=== PATIENT | male | born 1935 | race Caucasian/White ===

== ENCOUNTER 2016-06-20 07:30 | Emergency (ER) | payer MEDICARE ==
[2016-06-20 08:03] LABS: ABSOLUTE NEUTROPHIL COUNT 3.6 K/mm3 (1.8-7.7); BASO # 0.1 K/mm3 (0.0-0.2); BASO % 0.9 % (0.2-1.0); EOS # 0.3 (0.0-0.5); EOS % 4.1 % (0.9-2.9); HEMOGLOBIN 14.7 gm/l (14.0-18.0); IMM NEUT% 0.1 % (0-1); LYMPH # 2.9 (1.0-4.8); MEAN CELL VOLUME 100.2 fl (80.0-94.0); MEAN CORPUSCULAR HEMOGLOBIN 33.5 pg (27.0-31.0); MEAN CORPUSCULAR HGB CONC 33.4 g/dl (33.0-37.0); MEAN PLATELET VOLUME 9.6 fl (7.4-10.4); MONO # 0.9 (0.0-0.8); MONO % 11.6 % (4-12); NEUT % 46.3 % (43-75); PLATELET COUNT 213 K/mm3 (130-400); RED CELL DISTRIBUTION WIDTH 12.8 % (11.5-14.5)
[2016-06-20 08:16] LABS: ALB/GLOB RATIO 1.2 (>1.0); ALBUMIN 4.1 gm/dL (3.5-5.7); CALCIUM 9.6 mg/dL (8.6-10.3)
[2016-06-20 08:17] LABS: TROPONIN I < 0.01 ng/ml (0.0-0.06)
--- NOTE | 2016-06-20 08:18 | RAD ---
Exam: Portable chest COMPARISON: 05/20/2016 and 07/06/2014 INDICATION: Chest pain. FINDINGS: A semierect AP portable view of the chest demonstrates low lung volumes. Cardiac silhouette is within normal limits for technique. Mild prominence of the central bronchovascular markings is noted and unchanged given difference in technique. There is no pulmonary edema, focal airspace disease or pleural effusion. Bones of the chest wall intact. IMPRESSION: No acute pulmonary process.
[2016-06-20 08:21] LABS: CKMB ISOENZYME 1.8 ng/ml (0.6-6.3)
[2016-06-20] MEDS ORDERED: LACTATED RINGERS 1,000 ML ONE (08:22)
[2016-06-20] MEDS ORDERED: ASPIRIN CHEWTAB 81 MG TABLET ONE (08:22)
[2016-06-20 08:33] LABS: MAGNESIUM 2.1 mg/dL (1.9-2.7)
== END 2016-06-20 13:48 | disposition home or self-care (01) ==
LOC: ED 07:30
DX: R07.9 Chest pain, unspecified (principal); I25.10 Atherosclerotic heart disease of native coronary artery without angina pectoris; R10.9 Unspecified abdominal pain
CPT/HCPCS: 83690; 85025; 82550; 82553; 80053; 83735; 84484 ×2; 71010; 99284 ×2; 93005 ×2; A9270; J7120

== ENCOUNTER 2016-06-20 15:02 | Inpatient (IN) | payer MEDICARE ==
--- NOTE | 2016-10-11 09:33 | HP ---
DATE OF CLINIC: 10/05/2016 SAUL STEWART : 1935 PLANNED PROCEDURE: Right total hip arthroplasty DATE OF PROCEDURE: October 11, 2016 SURGEON: Saul Hernandez MD PCP: Dr. Cory eBrmudez Jr. HISTORY OF PRESENT ILLNESS Saul Stewart is an 80 year old male. * Medication list reviewed with patient allergy list reviewed with patient. * Tried NSAIDS * Has not tried Physical Therapy * Has not tried Injections Mr. Stewart is in today pre-operatively for his upcoming right total hip arthrplasty with Dr. Hernandez on 10/11/16. Patient presents in good spirits and is ready to proceed. He denies recent illness, change in health, or prior surgical complications. He has a right ankle fusion and notes he has to walk on the forefoot if he doesn't have his walking shoes. He will bring these for post surgery rehab. His recent consult follows: 80-year-old male here for consultation with respect to his right hip. He was recently seen by Bhupinder on 02/18/16. His history is as follows: This is an 80-year-old male who is seen today for a couple year history of right hip pain with decreased range of motion. The patient is a very active [employer]. He states that he began having pain posterior hip, lateral hip and groin. This was without accident or injury. 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 Ultimately he ended up having his ankle fused by Dr. Fitzgerald and has done fairly well. This certainly has compromised his gait for a number of years. The patient denies left hip pain. He denies a significant degree of back pain, denies radiating pain, numbness or tingling, bowel or bladder symptoms. Prior radiographs from 01/13/16 were available demonstrating significant degenerative changes. New x-rays were done today as well. Given his persisting limiting symptoms, he is interested in discussing definitive management options. Currently he is taking Meloxicam. Comorbidities include a history of gout. As noted above, he has also had a right ankle fusion done by Dr. Saul Fitzgerald. He is a non-smoker. CURRENT MEDICATION * Allopurinol 300 MG Tablet 1 once a day 90 days, 0 refills * Aspirin Adult Low Dose 81 MG Tablet Delayed Release 1 once a day 0 days, 0 refills * Centrum Silver Tablet 1 once a day 0 days, 0 refills * Latanoprost 0.005 % Solution as directed 25 days, 0 refills * Lisinopril 20 MG Tablet 1 once a day 0 days, 0 refills * Metoprolol Succinate ER 25 MG Tablet Extended Release 24 Hour as directed 30 days, 0 refills * Omeprazole 20 MG Tablet Delayed Release as directed 0 days, 0 refills * OxyCODONE HCl 5 MG Tablet 1-2 po q 4 hours for break thru pain if needed-TO BE USED FOR AFTER SURGERY, 5 days, 0 refills * OxyCONTIN 10 MG Tablet ER 12 Hour Abuse-Deterrent 1 po q 12 hours-TO BE USED FOR AFTER SURGERY, 10 days, 0 refills * Simvastatin 80 MG Tablet 1 once a day 90 days, 0 refills * TraMADol HCl 50 MG Tablet 1 po q 6 hours prn pain-TO BE USED FOR AFTER SURGERY, 5 days, 0 refills * Vitamin E 400 UNIT Capsule 2 once a day 0 days, 0 refills PAST MEDICAL/SURGICAL HISTORY Reported: Medical: Cholesterol problems. A previous fracture of right leg, Reported numbness, Reported tingling, renal Kidney Stones, and history of Arthritis. Surgical / Procedural: Prior surgery Right Ankle fusion by Dr. Saul Fitzgerald. SOCIAL HISTORY Behavioral: Caffeine use and non-smoker quit smoking 1960. Smoking status: Former smoker. Alcohol: Alcohol. Drug Use: Not using drugs. 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 ALLERGIES * No Known Allergies FAMILY HISTORY 4 children living Cancer mother and father Osteoarthritis mother Blood pressure mother Rheumatoid arthritis mother REVIEW OF SYSTEMS Systemic: No fever and no recent weight change. Head: No head symptoms. Cardiovascular: No cardiovascular symptoms. Pulmonary: No pulmonary symptoms. Gastrointestinal: No gastrointestinal symptoms. Psychological: No psychological symptoms. Skin: No skin lesions and no rash. PHYSICAL FINDINGS * Vitals taken 10/05/2016 02:21 pm BP-Sitting R 149/71 mmHg 100 - 120/60 - 80 BP Cuff Size Regular Pulse Rate-Sitting 56 bpm 50 - 100 Temp-Oral 97.8 F 96 - 101 Height 70 in 64 - 74 Weight 232 lbs 120 - 198 Body Mass Index 33.3 kg/m2 Body Surface Area 2.22 m2 Pain Level 2 Ears, Nose, Throat: * ENT: normal. Lungs: * Clear to auscultation. Cardiovascular: Heart Rate And Rhythm: * Normal. Abdomen: * Normal. Neurological: Motor: * Dominant Hand = Right Hand. Patient is a well-developed, well-nourished male in no acute distress, normal-appearing mood and affect. He ambulates with an antalgic, Trendelenburg gait. This is more notable at startup. There is slight pelvic obliquity, slight flattening of the lumbar lordosis. Evaluation of the right hip shows skin integrity to be well-preserved, no wounds, rashes or lesions. He is NT over the trochanter, NT over the groin, NT in the sciatic notch. Flexion is 90 degrees, ER 40 degrees with mild lateral discomfort, IR just shy of neutral with significant groin and lateral pain. Abduction 25 degrees. Adduction to the midline and approximately a 10 degree flexion contracture. He has mild increased discomfort with resisted active hip flexion. Thigh is soft and NT. No atrophy or asymmetry compared to the contralateral side. Cursory evaluation of the knee shows full motion. No focal periarticular tenderness. Calf is soft and NT. Distal light touch sensation and motor function are intact and symmetric. Pulses are palpable. Supine SLR is negative although he does tight hamstrings bilaterally. Contralateral hip exam shows non-irritable motion. No focal periarticular tenderness. TESTS X-rays of the pelvis and right hip obtained today show femoral head deformity with superior flattening, complete superior joint space loss, superolateral spurring of the acetabulum as well as blunting of the head and neck junction. Medially he has an osteophyte seen primarily inferiorly as well. He has a type B/C bone with suggestion of diffuse periarticular osteopenia. Contralateral hip shows mild changes, focally noted superolaterally at the joint. 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 THERAPY * Patient fall risk screen negative. * Patient eligible for fall risk assessment. * Patient received fall risk assessment. COUNSELING/EDUCATION * Education and counseling Total Joint Book given PLAN * Unilateral primary osteoarthritis, right hip Physical Therapy: [facility] [place] [phone] * Total hip replacement -Right Discussed with patient in detail the limitations, expectations as well as risks and possible complications of surgery including, but not limited to wound problems or infection, neurovascular injury, continued hip pain or dysfunction, postop instability including the possibility of dislocation and/or postop leg length discrepancy, and the possibility of prosthetic wear or failure over time that may require additional operative or non-operative treatment. Patient also realizes the perioperative risks including risks associated with anesthesia and would like to proceed. A full PAR conference was held, questions and concerns addressed and informed consent was obtained. Patient will be sent from my office for completion of the preoperative workup. [place] Hospitalist consult for perioperative medical management. Patient will use enteric coated aspirin 325mg daily for 6 weeks postoperatively for DVT prophylaxis. [facility] WBAT, posterior hip precautions. CARE TEAM Cory Bermudez Jr., MD Internal Medicine CC: Cory Bermudez Jr., MD [facility] [place] [facility]/sg
[2016-10-11] MEDS ORDERED: IV START KIT ONE (12:09)
[2016-10-11] MEDS ORDERED: LACTATED RINGERS 1,000 ML ONE (12:09)
[2016-10-11] MEDS ORDERED: CEFAZOLIN SODIUM 2 GRAM PREMIX 100 ML IV ONE (12:09)
[2016-10-11] MEDS ORDERED: GABAPENTIN 600 MG TABLET PO ONE (12:15)
[2016-10-11] MEDS ORDERED: FAMOTIDINE 20 MG TABLET PO ONE (12:15)
[2016-10-11] MEDS ORDERED: POLYMYXIN B SULFATE 500,000 UNITS, BACITRACIN 25,000 UNITS in SODIUM CHLORIDE 3 L IRRIG... IR PRN (12:15)
[2016-10-11] MEDS ORDERED: BUPIVACAINE 0.25% (MDV) 24 ML, MORPHINE SULFATE 8 MG, EPINEPHRINE 0.3 MG in SODIUM CHLO... IF PRN (12:15)
[2016-10-11] MEDS ORDERED: TRAMADOL HCL 50 MG TABLET PO ONE (12:15)
[2016-10-11] MEDS ORDERED: TRANEXAMIC ACID 1,000 MG in SODIUM CHLORIDE 0.9% 100 ML IV PRN (12:15)
[2016-10-11] MEDS ORDERED: CELECOXIB 200 MG CAPSULE PO ONE (12:15)
[2016-10-11] MEDS ORDERED: CLONIDINE HCL 0.1 MG/24 HR (7 DAY PATCH) TD SCH (12:15)
[2016-10-11] MEDS ORDERED: ONDANSETRON 4 MG/2ML 2 ML VIAL IV ONE (12:15)
[2016-10-11] MEDS ORDERED: OXYCODONE HCL 10 MG TAB.SR PO ONE ×2 (12:15→12:50)
[2016-10-11] MEDS ORDERED: BUPIVACAINE 0.25% (MDV) 20 ML in SODIUM CHLORIDE 0.9% FLUSH 20 ML IF PRN (12:15)
[2016-10-11] MEDS ORDERED: CEFAZOLIN SODIUM 2 GRAM DUPLEX 50 ML IV PRN (12:15)
[2016-10-11] MEDS ORDERED: TRAMADOL HCL 50 MG TABLET ONE (12:50)
[2016-10-11] MEDS ORDERED: ONDANSETRON 4 MG/2ML 2 ML VIAL ONE (12:51)
[2016-10-11] MEDS ORDERED: CLONIDINE HCL 0.1 MG/24 HR (7 DAY PATCH) TD ONE (12:51)
[2016-10-11] MEDS ORDERED: GABAPENTIN 600 MG TABLET ONE (12:51)
[2016-10-11] MEDS ORDERED: FAMOTIDINE 20 MG TABLET ONE (12:51)
[2016-10-11] MEDS ORDERED: CELECOXIB 200 MG CAPSULE ONE (12:51)
[2016-10-11] MEDS ORDERED: SPINAL PROCEDURAL TRAY 1 EACH ONE (13:17)
[2016-10-11] MEDS ORDERED: MIDAZOLAM HCL 5 MG/5 ML VIAL ONE ×2 (13:17→15:00)
[2016-10-11] MEDS ORDERED: BUPIVACAINE 0.75% SPINAL AMPUL 2 ML ONE ×2 (13:17→13:28)
[2016-10-11] MEDS ORDERED: FENTANYL 100 MCG/2 ML VIAL ONE (13:17)
[2016-10-11] MEDS ORDERED: PROMETHAZINE HCL 25 MG/ML VIAL IM PRN (15:29)
[2016-10-11] MEDS ORDERED: HYDRALAZINE HCL 20 MG/1 ML VIAL IV PRN (15:29)
[2016-10-11] MEDS ORDERED: MORPHINE SULFATE 4 MG/ML SYRINGE IV PRN (15:29)
[2016-10-11] MEDS ORDERED: ATROPINE SULFATE 0.4 MG/1 ML VIAL IV PRN (15:29)
[2016-10-11] MEDS ORDERED: NALOXONE HCL 0.4 MG/ML VIAL IV PRN (15:29)
[2016-10-11] MEDS ORDERED: MEPERIDINE 25 MG/ML SYRINGE IV PRN (15:29)
[2016-10-11] MEDS ORDERED: ONDANSETRON 4 MG/2ML 2 ML VIAL IV PRN ×2 (15:29→17:38)
[2016-10-11] MEDS ORDERED: LACTATED RINGERS 1,000 ML IV SCH (15:30)
[2016-10-11] MEDS ORDERED: DIPHENHYDRAMINE HCL 50 MG/1 ML VIAL ONE (16:43)
[2016-10-11] MEDS ORDERED: FAMOTIDINE 10 MG/ML 2ML VIAL ONE (16:44)
[2016-10-11] MEDS ORDERED: CALCIUM CARBONATE 500 MG TAB.CHEW PO PRN (17:38)
[2016-10-11] MEDS ORDERED: HYDROMORPHONE HCL 0.5 MG/0.5 ML SYRINGE IV PRN (17:38)
--- NOTE | 2016-10-11 17:43 | RAD ---
PELVIS HISTORY: Status post total hip arthroplasty. Frontal portable radiograph of the lower pelvis and hips. COMPARISON: 03/22/2016 FINDINGS: POSTPROCEDURAL CHANGE: Status post right total hip arthroplasty. ALIGNMENT: Grossly anatomic. FRACTURE: None identified. ADDITIONAL POSTPROCEDURAL FINDINGS: Soft tissue gas. IMPRESSION: Grossly unremarkable immediate post arthroplasty appearance of the right hip.
[2016-10-11] MEDS: D5 1/2NS with 20 mEq KCL 1,000 ML IV SCH (20:28)
[2016-10-11] MEDS: KETOROLAC TROMETHAMINE 30 MG/ML 1 ML VIAL IV PRN (20:29)
[2016-10-11 20:47] VITALS: BMI 31.8
[2016-10-11] MEDS ORDERED: CEFAZOLIN SODIUM 1 GRAM PREMIX 50 ML IV ONE (22:31)
[2016-10-11] MEDS: CEFAZOLIN SODIUM 1 GRAM PREMIX 1 G in Premix (D5W) 50 ml 1 EACH IV SCH (22:40)
[2016-10-11] MEDS: [UNRECOGNIZED DRUG - OTHER] OU SCH (23:27)
[2016-10-11] MEDS: BRIMONIDINE TARTRATE 0.1% OU SCH (23:27)
[2016-10-11] MEDS: ALLOPURINOL 300 MG TABLET PO SCH (23:29)
[2016-10-11] MEDS: DOCUSATE SODIUM 100 MG CAPSULE PO SCH (23:29)
[2016-10-11] MEDS: ACETAMINOPHEN 500 MG TABLET PO SCH (23:31)
[2016-10-11] MEDS: ASCORBIC ACID 500 MG TABLET PO SCH (23:31)
[2016-10-11] MEDS: OXYCODONE HCL 5 MG TABLET PO PRN (23:51)
[2016-10-12] MEDS: D5 1/2NS with 20 mEq KCL 1,000 ML IV SCH ×4 (02:00→23:38)
[2016-10-12] MEDS ORDERED: TRAMADOL HCL 50 MG TABLET PO PRN (02:00)
[2016-10-12] MEDS ORDERED: CEFAZOLIN SODIUM 1 GRAM PREMIX 50 ML IV ONE (05:08)
[2016-10-12] MEDS: ACETAMINOPHEN 500 MG TABLET PO SCH ×4 (05:26→20:46)
[2016-10-12] MEDS: KETOROLAC TROMETHAMINE 30 MG/ML 1 ML VIAL IV PRN (05:26)
[2016-10-12 06:08] LABS: HEMATOCRIT 37.8 % (32.0-52.0); HEMOGLOBIN 12.8 gm/l (14.0-18.0); MEAN CELL VOLUME 100.3 fl (80.0-94.0); MEAN CORPUSCULAR HGB CONC 33.9 g/dl (33.0-37.0); RED CELL DISTRIBUTION WIDTH 12.6 % (11.5-14.5)
--- NOTE | 2016-10-12 06:26 | CONS ---
Roshan Blount ADMIT DATE: 10/11/2016 PRIMARY CARE PHYSICIAN: Dr. Bermudez. ATTENDING PHYSICIAN: Dr. Roshan Hernandez. CONSULTING PHYSICIAN: Philippe Melvin MD. REASON FOR CONSULTATION: Medical management in the perioperative period. HISTORY OF PRESENT ILLNESS: Roshan is an 80-year-old male who earlier today underwent a right total hip arthroplasty by Dr. Hernandez. Please see Dr. Hernandez's note for further details. The surgery was apparently successful and uncomplicated. I am seeing him in the postoperative period. REVIEW OF SYSTEMS: He has had no recent fevers, chills, cough, sore throat, headache, visual symptoms, difficulty swallowing, chest pain, shortness of breath, heart palpitations, nausea, vomiting, or diarrhea, lower extremity weakness, numbness, tingling, or swelling. PAST MEDICAL HISTORY: 1. Hypertension. 2. Hyperlipidemia. 3. History of renal stones. PAST SURGICAL HISTORY: He had a right ankle fusion several years ago as a result of a childhood injury. ALLERGIES: No known drug allergies. MEDICATIONS: 1. Vitamin E 400 international units by mouth daily. 2. Simvastatin 80 mg by mouth at bedtime. 3. Omeprazole 20 mg by mouth at bedtime. 4. Multivitamin one by mouth at bedtime. 5. Metoprolol XL 25 mg by mouth daily. 6. Lisinopril 20 mg by mouth at bedtime. 7. Alphagan eye drops twice daily. 8. Aspirin 81 mg by mouth at bedtime. 9. Allopurinol 300 mg by mouth at bedtime. 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 No alcohol, tobacco, or drug use. He lives at home with his . OBJECTIVE: VITAL SIGNS: Temperature 97.5, pulse is 57, blood pressure 139/87, respirations 18, O2 sat 93% on room air. GENERAL: This is a well-developed, well-nourished elderly male. He is alert, calm, pleasant, smiling, speaking full sentences in no distress what so ever. HEENT: Normocephalic. EOM's intact. Oropharynx is moist. NECK: Supple. LUNGS: Clear to auscultation. ABDOMEN: Soft. EXTREMITIES: Surgical dressing is clean, dry, and intact. Pulses are intact. He is neurovascularly intact. PREOPERATIVE LABS: Performed 10/05/2016, CBC with a white count of 9.1, hemoglobin 14.5, hematocrit 42.5, platelets of 192. Chemistry panel with sodium of 137, potassium 4.4, chloride 105, carbon dioxide 26, BUN 14, creatinine 0.7, glucose of 111, calcium 9.6. INR of 1.01. Urinalysis clear. Nasal swab negative for MRSA, positive for MSSA. ASSESSMENT: 1. Postoperative day zero status post right total hip arthroplasty doing well. Routine postoperative care as per Dr. Hernandez. Pain regimen as per Dr. Hernandez. Aspirin for deep venous thrombosis prophylaxis. Orthopedic protocol as per Dr. Hernandez. 2. Hypertension. We will continue with his regular Metoprolol and lisinopril. Parameters have been written. 3. History of renal stones. Continue with usual Allopurinol. Supportive care otherwise. Further care is dictated by clinical course. JOB: [id number] CC: Dr. Mary Bermudez
[2016-10-12] MEDS: CEFAZOLIN SODIUM 1 GRAM PREMIX 1 G in Premix (D5W) 50 ml 1 EACH IV SCH (06:33)
[2016-10-12 06:38] LABS: CALCIUM 8.6 mg/dL (8.6-10.3)
--- NOTE | 2016-10-12 07:19 | PDOC43 ---
- Subjective Findings: comfortable night without any complaints Subjective: Reports Pain Tolerable, Denies Shortness of Breath, Denies Nausea, Denies Vomiting, Denies Fever - Objective Vital Signs Temperature 97.9 F 10/11/16 23:45 Pulse Rate 65 10/11/16 23:45 Respiratory Rate 18 10/12/16 05:36 Blood Pressure 151/78 10/11/16 23:45 O2 Saturation by Pulse Oximetry 94 10/12/16 05:39 Oxygen Delivery Method Room Air Oxygen Flow Rate 0 Laboratory 10/12/16 05:30 10/12/16 05:30 10/12/16 05:30 RBC 3.77 L MCV 100.3 H MCH 34.0 H Estimated GFR 109 H Active Medication Orders Category Date Time Status Acetaminophen [Tylenol] Med 10/11/16 21:00 Active 1,000 mg PO Q6H Allopurinol [Zyloprim] Med 10/11/16 23:00 Active 300 mg PO 2300 Ascorbic Acid [Vitamin C] Med 10/11/16 21:00 Active 500 mg PO BID Aspirin (Enteric Coated) [Ecotrin] Med 10/12/16 09:00 Active 325 mg PO DAILY Bisacodyl [Dulcolax] Med 10/14/16 17:15 Active 10 mg [place] DAILY PRN Brimonidine Tartrate 0.1% [Alphagan P 0.1%] Med 10/11/16 21:00 Active 2 gtts OU BID Calcium Carbonate [Tums] Med 10/11/16 17:38 Active 1,000 - 2,000 mg PO Q2H PRN Cefazolin Sodium 1 Gram Premix [Ancef 1 Gram Premix] 1 Med 10/11/16 23:00 Active g Premix (D5W) 50 ml 1 each IV Q8H Celecoxib [Celebrex] Med 10/12/16 09:00 Active 200 mg PO DAILY D5 1/2NS with 20 mEq KCL [D51/2NS with 20 mEq KCL] 1, Med 10/11/16 17:38 Active 000 ml IV 125 mls/hr Docusate Sodium [Colace] Med 10/11/16 21:00 Active 100 mg PO BID Hydromorphone HCl [Dilaudid] Med 10/11/16 17:38 Active 0.5 mg IV Q1H PRN Ketorolac Tromethamine [Toradol] Med 10/11/16 17:38 Active 15 mg IV Q6H PRN Lisinopril [Prinivil] Med 10/12/16 23:00 Active 20 mg PO 2300 Magnesium Hydroxide [Milk of Magnesia] Med 10/12/16 17:15 Active 30 ml PO DAILY PRN Metoprolol Succinate [Toprol Xl] Med 10/12/16 09:00 Active 25 mg PO DAILY Multivitamins [One-A-Day] Med 10/12/16 09:00 Active 1 tab PO DAILY Ondansetron 4 mg/2ml Vial [Zofran] Med 10/11/16 17:38 Active 4 - 6 mg IV Q6H PRN Oxycodone HCl [Roxicodone] Med 10/11/16 17:38 Active 5 - 10 mg PO Q4H PRN Remove Patch Med 10/12/16 13:00 Once 1 each TD X1 ONE Sodium Chloride 0.9% Flush [Normal Saline 10ml Flush] Med 10/11/16 17:38 Active 10 - 50 ml IV PRN PRN Sodium Chloride 0.9% Flush [Normal Saline 10ml Flush] Med 10/12/16 01:00 Active 10 ml IV Q8HR Tramadol HCl [Ultram] Med 10/12/16 02:00 Active 50 mg PO Q6H PRN Intake and Output 10/10/16 10/11/16 10/12/16 23:59 23:59 23:59 Intake Total 1482 Output Total 1050 Balance 432 General: Afebrile HEENT: Mucous membr. moist/pink Lungs: Normal Air Movement Cardiovascular: Regular Rate and Rhythm Abdomen: Soft Skin: Normal Color, Warm, Dry, Intact, No Rash, No Erythema - Right Lower Extremity Incision: Dressing Clean/Dry/Intact, No Shadow Drainage, No Rash, No Ecchymosis Motor: Extensor Hallucis Longus: 5/5, Tibialis Anterior: 5/5, Gastrocnemius: 5/5 , Peroneals: 5/5 Gross Sensation to Light Touch: Present: Deep Peroneal Nerve, Superficial Peroneal Nerve, Medial Plantar Nerve, Lateral Plantar Nerve Capillary Refill: < 3 Seconds Motion: Heels slides and gentle PROM with rotation well tolerated - Problems (1) Status post total hip replacement, right Status: AcuteAssessment/Plan: POD#1 LUDWIN 1. Physical Therapy: per LUDWIN protocol, reviewed precautions 2. Pain Control: Doing very well with multimodal 3. DVT Prophylaxis: ASA/mechanicals 4. Disposition: will follow- if continues to do well, suspect home next 1-2 days 5. Medical Issues: stable- appreciate input/care from Hospitalist service
[2016-10-12] MEDS: METOPROLOL SUCCINATE 25 MG TAB.ER.24H PO SCH (08:12)
[2016-10-12] MEDS: CELECOXIB 200 MG CAPSULE PO SCH (08:12)
[2016-10-12] MEDS: ASPIRIN (ENTERIC COATED) 325 MG TABLET.EC PO SCH (08:13)
[2016-10-12] MEDS: DOCUSATE SODIUM 100 MG CAPSULE PO SCH ×2 (08:13→20:46)
[2016-10-12] MEDS: ASCORBIC ACID 500 MG TABLET PO SCH ×2 (08:13→20:46)
[2016-10-12] MEDS: MULTIVITAMINS 1 TAB TABLET PO SCH (08:13)
[2016-10-12] MEDS: [UNRECOGNIZED DRUG - OTHER] OU SCH ×2 (10:04→20:46)
[2016-10-12] MEDS: BRIMONIDINE TARTRATE 0.1% OU SCH ×2 (10:04→20:46)
--- NOTE | 2016-10-12 10:49 | PDOC43 ---
- Subjective Chief Complaint: S/P R LUDWIN Doing well. No c/o's. Working well with PT/OT. Subjective: Reports Pain Tolerable, Reports Tolerating Diet Well, Reports Adequate Oral Intake, Denies Shortness of Breath, Denies Cough, Denies Chest Pain, Denies Abdominal Pain, Denies Nausea, Denies Vomiting, Denies Fever, Denies Chills - Objective Vital Signs Temperature 97.6 F 10/12/16 07:12 Pulse Rate 67 10/12/16 07:12 Respiratory Rate 10/12/16 08:00 Blood Pressure 118/58 10/12/16 07:12 O2 Saturation by Pulse Oximetry 91 10/12/16 07:12 Oxygen Delivery Method Room Air Oxygen Flow Rate 0 Intake and Output 10/11/16 10/12/16 10/13/16 06:59 06:59 06:59 Intake Total 1482 Output Total 1050 Balance 432 General: Alert, Oriented x3, Cooperative, No Acute Distress HEENT: Atraumatic Lungs: Clear to Auscultation Bilaterally Cardiovascular: Regular Rate and Rhythm Abdomen: Soft, Normal Bowel Sounds, Non-Distended, No Tenderness Extremities: Normal Pulses, No Edema Wound: Dressing Clean/Dry/Intact Laboratory 10/12/16 05:30 10/12/16 05:30 10/12/16 05:30 RBC 3.77 L MCV 100.3 H MCH 34.0 H Estimated GFR 109 H Current Medications: Current meds reviewed in EMR. - Problems: Assessment/Plan (1) Status post total hip replacement, right Status: AcuteAssessment/Plan: POD #1. Doing well. Routine post-op as per ortho. ASA for DVT proph. (2) HTN (hypertension) Qualifiers: Hypertension type: essential hypertension Qualifier Code: (I10) Essential (primary) hypertension Status: ChronicAssessment/Plan: Stable. Con't usual metoprolol and lisinopril. VTE Prophylaxis: ASA Disposition: Anticipate d/c home in 1-2 days.
[2016-10-12] MEDS ORDERED: REMOVE PATCH 1 EACH UNIT TD SCH (12:15)
[2016-10-12] MEDS ORDERED: REMOVE PATCH 1 EACH UNIT TD ONE (13:00)
[2016-10-12] MEDS ORDERED: MAGNESIUM HYDROXIDE 30 ML UDCUP PO PRN (17:15)
[2016-10-12] MEDS: OXYCODONE HCL 5 MG TABLET PO PRN (19:38)
[2016-10-12] MEDS ORDERED: LISINOPRIL 20 MG TABLET PO SCH (23:00)
[2016-10-12] MEDS: ALLOPURINOL 300 MG TABLET PO SCH (23:39)
[2016-10-13] MEDS: D5 1/2NS with 20 mEq KCL 1,000 ML IV SCH (02:42)
[2016-10-13] MEDS: ACETAMINOPHEN 500 MG TABLET PO SCH ×2 (04:41→08:17)
[2016-10-13 06:12] LABS: HEMATOCRIT 38.5 % (32.0-52.0); HEMOGLOBIN 12.8 gm/l (14.0-18.0)
--- NOTE | 2016-10-13 07:39 | PDOC43 ---
- Subjective Findings: Ortho POD 2 R LUDWIN Patient awake, A and O times 4 this am and in good spirits. No present c/o. Hip pain is well controlled. Denies CP/SOB/NV. Taking a regular diet and positive flatus. [place] confident with ambulatory PT on POD 1. Is prepared at home for a discharge today. Subjective: Denies Chest Pain, Denies Shortness of Breath, Denies Nausea, Denies Vomiting, Denies Fever - Objective Vital Signs Temperature 98.6 F 10/13/16 02:00 Pulse Rate 63 10/13/16 02:00 Respiratory Rate 20 10/13/16 02:43 Blood Pressure 124/62 10/13/16 02:00 O2 Saturation by Pulse Oximetry 93 10/13/16 02:00 Oxygen Delivery Method Room Air Oxygen Flow Rate 0 Laboratory 10/13/16 05:30 10/12/16 05:30 Active Medication Orders Category Date Time Status Acetaminophen [Tylenol] Med 10/11/16 21:00 Active 1,000 mg PO Q6H Allopurinol [Zyloprim] Med 10/11/16 23:00 Active 300 mg PO 2300 Ascorbic Acid [Vitamin C] Med 10/11/16 21:00 Active 500 mg PO BID Aspirin (Enteric Coated) [Ecotrin] Med 10/12/16 09:00 Active 325 mg PO DAILY Bisacodyl [Dulcolax] Med 10/14/16 17:15 Active 10 mg MD DAILY PRN Brimonidine Tartrate 0.1% [Alphagan P 0.1%] Med 10/11/16 21:00 Active 2 gtts OU BID Calcium Carbonate [Tums] Med 10/11/16 17:38 Active 1,000 - 2,000 mg PO Q2H PRN Celecoxib [Celebrex] Med 10/12/16 09:00 Active 200 mg PO DAILY D5 1/2NS with 20 mEq KCL [D51/2NS with 20 mEq KCL] 1, Med 10/11/16 17:38 Active 000 ml IV 125 mls/hr Docusate Sodium [Colace] Med 10/11/16 21:00 Active 100 mg PO BID Hydromorphone HCl [Dilaudid] Med 10/11/16 17:38 Active 0.5 mg IV Q1H PRN Lisinopril [Prinivil] Med 10/12/16 23:00 Active 20 mg PO 2300 Magnesium Hydroxide [Milk of Magnesia] Med 10/12/16 17:15 Active 30 ml PO DAILY PRN Metoprolol Succinate [Toprol Xl] Med 10/12/16 09:00 Active 25 mg PO DAILY Multivitamins [One-A-Day] Med 10/12/16 09:00 Active 1 tab PO DAILY Ondansetron 4 mg/2ml Vial [Zofran] Med 10/11/16 17:38 Active 4 - 6 mg IV Q6H PRN Oxycodone HCl [Roxicodone] Med 10/11/16 17:38 Active 5 - 10 mg PO Q4H PRN Sodium Chloride 0.9% Flush [Normal Saline 10ml Flush] Med 10/11/16 17:38 Active 10 - 50 ml IV PRN PRN Sodium Chloride 0.9% Flush [Normal Saline 10ml Flush] Med 10/12/16 01:00 Active 10 ml IV Q8HR Tramadol HCl [Ultram] Med 10/12/16 02:00 Active 50 mg PO Q6H PRN Generic Name Dose Route Start Last Admin Trade Name Freq PRN Reason Stop Dose Admin Acetaminophen 1,000 mg 10/11/16 21:00 10/13/16 04:41 Tylenol PO Not Given Q6H [facility] Allopurinol 300 mg 10/11/16 23:00 10/12/16 23:39 Zyloprim PO 300 mg 2300 ORLIN Administration Ascorbic Acid 500 mg 10/11/16 21:00 10/12/16 20:46 Vitamin C PO 500 mg BID [facility] Administration Aspirin 325 mg 10/12/16 09:00 10/12/16 08:13 Ecotrin PO 325 mg DAILY [facility] Administration Bisacodyl 10 mg 10/14/16 17:15 Dulcolax MD DAILY PRN If no BM by POD#3 Brimonidine Tartrate 2 gtts 10/11/16 21:00 10/12/16 20:46 Alphagan P 0.1% OU Not Given BID [facility] Calcium Carbonate/Glycine 1,000 - 2,000 mg 10/11/16 17:38 Tums PO Q2H PRN Heartburn/Indigestion Celecoxib 200 mg 10/12/16 09:00 10/12/16 08:12 Celebrex PO 200 mg DAILY [facility] Administration Docusate Sodium 100 mg 10/11/16 21:00 10/12/16 20:46 Colace PO 100 mg BID [facility] Administration Hydromorphone HCl 0.5 mg 10/11/16 17:38 Dilaudid IV Q1H PRN Severe/Breakthrough Pain Potassium Chloride/Dextrose/Sod Cl 1,000 mls @ 125 mls/hr 10/11/16 17:38 02:42 D51/2ns With 20 Meq Kcl IV Not Given .Q8H [facility] Lisinopril 20 mg 10/12/16 23:00 10/12/16 23:32 Prinivil PO 20 mg 2300 [facility] Administration Magnesium Hydroxide 30 ml 10/12/16 17:15 Milk Of Magnesia PO DAILY PRN If no BM by evening of POD#1 Metoprolol Succinate 25 mg 10/12/16 09:00 10/12/16 08:12 Toprol Xl PO 25 mg DAILY [facility] Administration Multivitamins 1 tab 10/12/16 09:00 10/12/16 08:13 One-A-Day PO 1 tab DAILY [facility] Administration Ondansetron HCl 4 - 6 mg 10/11/16 17:38 Zofran IV Q6H PRN Nausea/Vomiting Oxycodone HCl 5 - 10 mg 10/11/16 17:38 10/12/16 19:38 Roxicodone PO 5 mg Q4H PRN Administration Pain (Moderate) Sodium Chloride 10 - 50 ml 10/11/16 17:38 10/12/16 05:26 Normal Saline 10ml Flush IV 10 ml PRN PRN Administration IV Flush Sodium Chloride 10 ml 10/12/16 01:00 10/13/16 02:42 Normal Saline 10ml Flush IV Not Given Q8HR [facility] Tramadol HCl 50 mg 10/12/16 02:00 Ultram PO Q6H PRN Pain (Mild) Intake and Output 10/11/16 10/12/16 10/13/16 23:59 23:59 23:59 Intake Total 2332 420 Output Total 1700 925 Balance 632 -505 Neurological: No Normal Gait (ambulating with a walker post R LUDWIN) Peripheral Pulses: Right Posterior Tibialis: 1+, Right Dorsalis Pedis: 1+ - Right Lower Extremity Incision: Well Approximated (with a subcutaneous closure, skin glue and steris. Mild glut and thigh edema. Thigh and calf are SNT.), No Dressing Saturated, No Shadow Drainage, No Drainage, No Erythema, No Rash - Problems (1) Status post total hip replacement, right Status: AcuteAssessment/Plan: Ortho POD 2 R LUDWIN 1. Continue Physical Therapy: per LUDWIN protocol, reviewed precautions 2. Continue Pain Control: Doing very well with multimodal. Call for modifications. 3. Continue DVT Prophylaxis: ASA/mechanicals, mobility. 4. Disposition: Doing well with likely discharge home today following PT if meets criteria. 5. Medical Issues: stable- appreciate input/care from Hospitalist service. 6. Follow-up with Dr. Hernandez and outpatient PT as scheduled.
[2016-10-13] MEDS: METOPROLOL SUCCINATE 25 MG TAB.ER.24H PO SCH (08:16)
[2016-10-13] MEDS: CELECOXIB 200 MG CAPSULE PO SCH (08:16)
[2016-10-13] MEDS: BRIMONIDINE TARTRATE 0.1% OU SCH (08:17)
[2016-10-13] MEDS: ASPIRIN (ENTERIC COATED) 325 MG TABLET.EC PO SCH (08:17)
[2016-10-13] MEDS: [UNRECOGNIZED DRUG - OTHER] OU SCH (08:17)
[2016-10-13] MEDS: DOCUSATE SODIUM 100 MG CAPSULE PO SCH (08:17)
[2016-10-13] MEDS: MULTIVITAMINS 1 TAB TABLET PO SCH (08:17)
[2016-10-13] MEDS: ASCORBIC ACID 500 MG TABLET PO SCH (08:17)
[2016-10-13 09:46] VITALS: BP 153/78
--- NOTE | 2016-10-14 09:55 | DS ---
Roshan STEWART [id number] : 1935 DATE OF ADMISSION: October 11, 2016 DATE OF DISCHARGE: October 13, 2016 DISCHARGE DIAGNOSES: Right hip degenerative joint disease. HOSPITAL PROCEDURES: Right total hip arthroplasty. SURGEON: Roshan Hernandez M.D. BRIEF HISTORY: Patient is an 80-year-old gentleman with both clinical and radiographic evidence of advanced DJD of their right hip. For the full history please see the chart note. BRIEF HOSPITAL COURSE: Patient was admitted on October 11, 2016 Dr. Roshan Hernandez performed a right total hip arthroplasty. Patient was moved to the recovery room in stable condition. They were given 4 doses of antibiotic for empiric coverage. DVT prophylaxis consisted of aspirin 325 mg, pneumatic compression devices, ALETA hose and mobility. PT was instituted postop day 1 with right total hip arthroplasty protocol, weightbearing as tolerated. Their incision site remained benign, their vital signs remained stable and they remained neurally and vascularly intact through the duration of the stay. They were discharged home postop day 2 to continue outpatient PT at [facility] with right total hip arthroplasty protocol, weightbearing as tolerated keeping total hip precautions in mind. Philippe Melvin M.D. was consulted to manage perioperative medical management. For his consultation, please see the chart note. DISCHARGE INSTRUCTIONS: 1. Keep the wound site clean and dry, change dressing daily or as needed. 2. Continue the use of ALETA hose bilaterally. 3. Ice pack over the wound site prn. 4. Continue total hip precautions. 5. Outpatient PT at [facility] with right total hip arthroplasty protocol, weightbearing as tolerated. MEDICATIONS: 1. Patient is to resume normal preop medications. 2. Anti-coagulation will be with aspirin, 325mg daily for 6 weeks. 3. Pain management will be with OxyContin, 10mg every 12 hours x 10 days, Oxycodone, 5mg 1-2 every 4 hours prn for breakthrough pain. 4. Patient was also advised on utilization of a multi-vitamin with mineral daily as well as Vitamin C, 500mg, daily for 1 month. 5. Patient encouraged to take an iron supplement in the form of ferrous sulfate, 325mg daily for 4 weeks. 6. Colace, 100mg, b.i.d. until regular bowel movement. FOLLOW-UP: Please return to the clinic as scheduled for your first scheduled postop check. Prior to that point in time please call with any questions or concerns. Job CC: [place] Jesse Bermudez Jr., M.D. [facility]
--- NOTE | 2016-10-14 10:23 | OP ---
SAUL STEWART [id number] : 1935 DATE OF SURGERY: October 11, 2016 PREOPERATIVE DIAGNOSIS: Degenerative joint disease right hip POSTOPERATIVE DIAGNOSIS: Same PROCEDURE: Right Total Hip Arthroplasty COMPONENTS: Polar size 6 standard offset press-fit femoral stem with a 36mm -3 Oxinium femoral head, 58mm R3 StikTite press-fit acetabular shell with a neutral cross-linked polyethylene liner. SURGEON: Mary ASSIST: Shasta HOANG) ANESTHESIA: Spinal per Ashish EBL: 50 mL URINE OUTPUT: 200 mL IVF REPLACEMENT: Per anesthesia, 2.4 liters crystalloid DRAINS: None COMPLICATIONS: None HISTORY: Briefly, patient is an 80-year-old male with clinical and radiographic evidence most consistent with degenerative joint disease of their right hip. They have failed traditional nonoperative measures and at this point desire elective surgical management. For additional details, refer to previously dictated Preoperative History and Physical Exam. A full PAR conference was held, questions and concerns were addressed, and informed consent was obtained. FINDINGS: Advanced degenerative changes with femoral head deformity, superior flattening, eburnation. There was a fairly large medial osteophyte with inferior calcification of the labrum extending posteriorly. Posterior osteophyte as well. PROCEDURE: The patient was taken to the operating room and after previously described anesthesia was placed in the lateral decubitus position on the operating room table and held with the peg board positioner. Damaris prominences were well padded and an axillary roll was placed. The right hip girdle and lower extremity were then prepped and draped out in the usual sterile fashion. Preoperative antibiotics were given empirically. Intraoperative DVT prophylaxis consisted of bilateral mechanical foot pumps. Personal filtration suits were used as was a closed room environment. An oblique ten centimeter incision was made using the minimally invasive guide posterior and extending slightly proximal to the greater trochanter. We dissected through subcutaneous tissue down to the gluteus fascia. Electrocautery was used at this point and throughout the duration of the case to establish and maintain hemostasis. The gluteus fascia was incised in line with the incision and the muscle fibers split to expose the underlying bursal tissue. Tranexamic acid was infiltrated over 10 minutes prior to incision, 1 gram dose per protocol. A similar 2nd dose was given at initiation of closure. A deep self retaining field retractor was placed. The short external rotators were identified, the piriformis was tagged and reflected with the underlying capsule which was reflected in a U fashion off the femoral neck and tagged as well for later repair. Release of the capsule allowed for dislocation of the hip and the femoral head was brought up into the operative field. A femoral neck cut was made proximal to the lesser trochanter as per our preoperative templating. We then translated the femur anteriorly exposing the acetabulum. The remaining labrum was excised circumferentially. Osteophytes were debrided under direct visualization. We reamed to the true acetabular floor and then incrementally up to a 57 as per our preoperative plan at which point we noted circumferential bleeding cancellous bone. This was trialed at approximately 45 degrees of abduction and 20 degrees of anteversion with good fit and stability. We then impacted the true acetabular component which was seated completely. An apical hole cover was placed and we impacted the neutral crosslinked polyethylene liner. Attention was then directed back to the femur. The remaining soft tissue was cleared from the piriformis fossa and we use a rongeur and box osteotome to enter the proximal femoral canal followed by the canal seeker and then the broach only system up to a size 6 matching the patient's tunica-biloxi anteversion with good proximal fill and rotational stability. This was trialed with a standard offset. This was felt to be still too long. I therefore removed the broach, used the reciprocating saw to remove approximately 5 more mm of bone off the calcar. We then re-broached, placed a trial with a 6, -3 and the hip was reduced with good stability to 70 degrees of internal rotation in 90 degrees of flexion and full extension with no instability on external rotation. There was good soft tissue balance and approximately equal leg lengths. Satisfied, trial components were removed and we impacted the true femoral stem. The trunnion was then cleaned and dried and the femoral head was impacted. The hip was then reduced with stability as previously discussed. Satisfied, we turned our attention to closure. The wound was copiously irrigated with antibiotic pulsatile lavage. We then advanced the capsule and piriformis to the gluteus medius insertion. The gluteus fascia was closed with a running number two PDO StratoFix suture. 1st periarticular injection was given at this point per protocol into the capsule, synovium, gluteus and external rotators. The subcutaneous tissue was closed with interrupted 2-0 and 3-0 Vicryl and the skin was closed with a running 4-0 Monocryl stitch with Indermil and Steri-Strips. The 2nd periarticular injection was done at this point per protocol into the subcutaneous tissue superiorly and anteriorly to the incision. A sterile hip dressing was then applied, the patient was returned to the supine position, transferred to their hospital bed, and sent to the postoperative recovery room in stable condition. They tolerated the procedure well. Sponge, instrument, and needle count were correct. RONALD/mrw CC: Pj Bermudez MD PT [facility] [place]
[2016-10-14] MEDS ORDERED: BISACODYL 10 MG SUP PR PRN (17:15)
== END 2016-10-13 11:00 | disposition home or self-care (01) | DRG 470 ==
LOC: OR 10-11 12:01 → MS 10-11 17:50
PROVIDERS: ADMIT Orthopaedic Surgery; ATTEND Orthopaedic Surgery
PROC: 0SR901A Replacement of Right Hip Joint with Metal Synthetic Substitute, Uncemented, Open Approach (ICD-10-PCS; principal; 2016-10-11)
DX: M16.11 Unilateral primary osteoarthritis, right hip (principal); I10 Essential (primary) hypertension; E78.5 Hyperlipidemia, unspecified